=== PATIENT | female | born 1980 | race African-American/Black ===

== ENCOUNTER 2022-07-03 21:02 | Emergency (ER) | payer MEDICAID ==
[~2022-07-03] VITALS: Ht 162.6 cm; Wt 75.5 kg
[2022-07-03 21:28] VITALS: BP 136/83
[2022-07-04] MEDS ORDERED: CYCL-837 PO (11:16)
[2022-07-04] MEDS ORDERED: IBUP800T27 PO (11:16)
== END 2022-07-03 23:15 | disposition left against medical advice (07) ==
LOC: ER 21:02
DX: R07.81 Pleurodynia (principal); R50.9 Fever, unspecified; R05.9 Cough, unspecified; J02.9 Acute pharyngitis, unspecified; Z53.21 Procedure and treatment not carried out due to patient leaving prior to being seen by health care provider
CPT/HCPCS: 71046

== ENCOUNTER 2022-07-04 08:48 | Emergency (ER) | payer MEDICAID ==
[~2022-07-04] VITALS: Ht 162.6 cm; Wt 74.9 kg
[2022-07-04] MEDS ORDERED: KETOROLAC TROMETH 60MG/2ML VIAL IM ONE (09:45)
[2022-07-04 10:01] LABS: Urine Bacteria NONE SEEN /hpf (None Seen); Urine Blood 1+ /uL (Negative); Urine Mucus FEW (None Seen); Urine Specific Gravity 1.031 (1.001-1.035); Urine WBC 1 /hpf (0 - 5)
[2022-07-04 10:26] LABS: Basophils # (auto) 0 10 ^3/uL (0-0.2); Eosinophils # (auto) 0.1 10 ^3/uL (0-0.8); Hematocrit 37.4 % (36.0-46.0); Monocytes # (auto) 0.3 10 ^3/uL (0-1.3); Neutrophils # (auto) 1.7 10 ^3/uL (1.6-8.6); Red Cell Distribution Width 13.3 % (11.8-14.3); White Blood Cell 3.5 10^3/uL (4.4-10.8)
[2022-07-04 10:28] LABS: Basophils % (auto) 0.8 % (0.0-2.0); Eosinophils % (auto) 2.7 % (0.0-7.0); Hemoglobin 11.9 g/dL (12.2-16.2); Lymphocytes # (auto) 1.4 10 ^3/uL (0.4-5.4); Mean Corpuscular Hemoglobin 26.7 pg (28.0-32.0); Mean Corpuscular Hgb Conc. 31.7 g/dL (32.0-36.0); Mean Corpuscular Volume 84.1 fL (80.0-100.0); Monocytes % (auto) 7.6 % (0.0-12.0); Neutrophils % (auto) 47.9 % (37.0-80.0); Nucleated Red Blood Cells % 0.1 %; Red Blood Cells 4.45 10^6/uL (4.0-5.20)
[2022-07-04 10:57] LABS: Albumin 3.5 g/dL (3.4-5.0); Calcium 8.8 mg/dL (8.5-10.1)
[2022-07-04 11:00] LABS: Bilirubin, Total 0.3 mg/dL (0.2-1.0); Total Protein 7.6 g/dL (6.4-8.2)
[2022-07-04] MEDS ORDERED: IBUP800T27 PO (11:16)
[2022-07-04] MEDS ORDERED: CYCL-837 PO (11:16)
[2022-07-04 11:40] VITALS: BP 116/71
== END 2022-07-04 11:17 | disposition home or self-care (01) ==
LOC: ER 08:48
DX: R10.9 Unspecified abdominal pain (principal); Z90.49 Acquired absence of other specified parts of digestive tract; Z79.1 Long term (current) use of non-steroidal anti-inflammatories (NSAID); Z79.899 Other long term (current) drug therapy; Z88.8 Allergy status to other drugs, medicaments and biological substances
CPT/HCPCS: 36415; 74176; 80053; 81001; 85025; 96372; 99284; J1885

== ENCOUNTER 2023-07-21 20:08 | Emergency (ER) | payer MEDICAID ==
[~2023-07-21] VITALS: Ht 165.1 cm; Wt 77.2 kg
[~2023-07-21 20:08] MED LIST: CYCL-837 PO; IBUP-1456 PO
[2023-07-21 20:37] VITALS: BP 126/96; PULSE 77; RESP 20; TEMP 97.8; O2SAT 98
[2023-07-21] MEDS ORDERED: KETOROLAC TROMETH 30 MG/ML 1ML VIAL IM ONE (21:15)
== END 2023-07-21 22:48 | disposition home or self-care (01) ==
LOC: ER 20:10
DX: M54.50 Low back pain, unspecified (principal); R07.89 Other chest pain; Z90.49 Acquired absence of other specified parts of digestive tract; Z88.6 Allergy status to analgesic agent; V43.92XA Unspecified car occupant injured in collision with other type car in traffic accident, initial encounter; Y93.89 Activity, other specified; Y92.89 Other specified places as the place of occurrence of the external cause; Y99.8 Other external cause status
CPT/HCPCS: 71045; 72100; 96372; 99284; J1885

== ENCOUNTER 2023-12-04 05:49 | Emergency (ER) | payer MEDICAID ==
[~2023-12-04] VITALS: Ht 162.6 cm; Wt 77.3 kg
[~2023-12-04 05:49] MED LIST changes: +IBUP1TAB5 PO; +ZOFR4T PO
[2023-12-04 07:47] VITALS: BP 113/79; PULSE 92; RESP 18; TEMP 98; O2SAT 92
[2023-12-04] MEDS ORDERED: PROMETHAZINE W/CODEINE 5 ML ORAL SYRUP PO ONE (08:00)
[2023-12-04 10:03] LABS: Rapid Influenza A Negative (Negative); Rapid Influenza B Negative (Negative)
[2023-12-04 10:04] LABS: COVID19 ANTIGEN SOFIA FIA NEGATIVE (NEGATIVE)
[2023-12-04] MEDS ORDERED: AZIT-81 PO (10:16)
[2023-12-04] MEDS ORDERED: IBUP1TAB5 PO (10:16)
[2023-12-04] MEDS ORDERED: PROM1SOL4 PO (10:16)
[2023-12-04] MEDS ORDERED: BENZ100C97 PO (10:17)
== END 2023-12-04 10:25 | disposition home or self-care (01) ==
LOC: ER 05:49
DX: B34.9 Viral infection, unspecified (principal); J06.9 Acute upper respiratory infection, unspecified; Z20.822 Contact with and (suspected) exposure to COVID-19; Z90.49 Acquired absence of other specified parts of digestive tract
CPT/HCPCS: 36415; 71045; 87426; 87804